=== PATIENT | male | born 1975 | race Caucasian/White ===

== ENCOUNTER 2018-05-06 14:43 | Outpatient (CLI) | payer OTHER ==
[2018-05-06] MEDS ORDERED: TEST200V3 IM (15:06)
== END 2018-05-06 23:59 | disposition home or self-care (01) ==
LOC: STAR 14:43
PROVIDERS: ATTEND Urology
DX: Z02.9 Encounter for administrative examinations, unspecified (principal)

== ENCOUNTER 2018-05-08 09:33 | Day surgery (SDC) | payer OTHER ==
[~2018-05-08] VITALS: Ht 180.3 cm; Wt 80.2 kg
[~2018-05-08 09:33] MED LIST: TEST200V3 IM
[2018-05-08] MEDS ORDERED: LACTATED RINGERS 1,000 ML IV SCH (09:53)
[2018-05-08 09:54] VITALS: BP 132/80
[2018-05-08] MEDS ORDERED: FENTANYL PF 100 MCG/2ML ONE (11:29)
[2018-05-08] MEDS ORDERED: MIDAZOLAM 1 MG/ML, 2ML ONE (11:29)
[2018-05-08] MEDS ORDERED: PROPOFOL 10 MG/ML, 20ML ONE (11:32)
[2018-05-08] MEDS ORDERED: SUCCINYLCHOLINE 20 MG/ML, 10ML ONE (11:32)
[2018-05-08] MEDS ORDERED: OXYcodone/APAP 5/325MG TABLET PO PRN (13:00)
[2018-05-08] MEDS ORDERED: LORazepam 2 MG/ML, 1ML IVPush PRN (13:30)
[2018-05-08] MEDS ORDERED: OXYcodone 5 MG/5 ML ORAL.SOL UDC PO PRN (13:30)
[2018-05-08] MEDS ORDERED: FENTANYL PF 100 MCG/2ML IV PRN (13:30)
[2018-05-08] MEDS ORDERED: HYDROmorphone 2 MG/ML, 1ML IVPush PRN (13:30)
[2018-05-08] MEDS ORDERED: ACETAMINOPHEN 325 MG TABLET PO PRN (13:30)
[2018-05-08] MEDS ORDERED: MEPERIDINE/PF 25MG/0.5ML IVPush PRN (13:30)
[2018-05-08] MEDS ORDERED: ONDANSETRON 2MG/ML, 2ML IV PRN (13:30)
== END 2018-05-08 14:25 | disposition home or self-care (01) ==
LOC: OUT 09:33
PROVIDERS: ATTEND Urology
DX: N20.0 Calculus of kidney (principal)
CPT/HCPCS: 50590; J0330; J2250; J2704; J3010; J7120